=== PATIENT | female | born 2005 | race Caucasian/White ===

== ENCOUNTER 2023-02-10 14:16 | Emergency (ER) | payer BC, SELFPAY ==
--- NOTE | 2023-02-10 14:23 | ED.URI ---
HPI - URI/Sore Throat General Chief Complaint: Upper Respiratory Infection Stated Complaint: Sore Throat, Cough, Congestion Source: patient and RN notes reviewed History of Present Illness HPI Narrative: 17 yo F presents to urgent care with complaints of congestion, sore throat, and intermittent LINARES x 3 weeks. Pt states her sore throat improves throughout the day but the congestion is constant. Denies any fevers, chills, ear pain, chest pain, SOB, N/V/D. Pt has been using Dayquil and Zyrtec with minimal relief. Related Data Home Medications Medication Instructions Recorded Confirmed norgestimate 0.18 mg/0.215 mg/0.25 tablet 02/10/23 mg-ethinyl estradiol 25 mcg tablet (Tri-Lo-Aylin) sumatriptan succinate 50 mg tablet mg PO 02/10/23 Allergies Allergy/AdvReac Type Severity Reaction Status Date / Time No Known Allergies Allergy Verified 02/10/23 14:25 Review of Systems Review of Systems: Pertinent positives and pertinent negatives per HPI. PMFSH Comments At the time of my signature, I reviewed and agree with the nursing past medical, surgical, social, and family history. There is no relevant family history pertinent to the patient complaint. Exam Narrative: GENERAL: This is a well-nourished, well-developed patient, in no apparent distress. HEAD: normocephalic, atraumatic. EYES: Sclera clear/white. Vision is grossly intact. EARS: External ears normal, auditory canals clear and without drainage, TMs normal without perforation. Hearing grossly intact. NOSE: External nose normal with no obvious nasal discharge, nares without redness, no rhinorrhea. THROAT: Mucous membranes moist, posterior pharynx clear. NECK: Neck supple, non-tender without lymphadenopathy, masses or thyromegaly. CARDIOVASCULAR: Regular rate and rhythm without murmurs, gallops, or rubs. RESPIRATORY: Clear to auscultation. Breath sounds equal bilaterally. No wheezes, rales, or rhonchi. GASTROINTESTINAL: Abdomen soft, non-tender, nondistended. Bowel sounds are active. No hepato-splenomegaly, or palpable masses. No guarding. SKIN: warm, intact with no suspicious lesions or rash, good texture and turgor. NEURO: awake, alert, and oriented to person, place and time. There were no obvious focal neurologic abnormalities. EXTREMITIES: No clubbing, cyanosis, or edema. No joint tenderness, effusion, or edema noted. BACK: Nontender without deformity or crepitus. No flank tenderness. Course Course Level of Care: Express Care Visit Vital Signs Vital signs: Vital Signs Temperature 98.2 F 02/10/23 14:26 Pulse Rate 93 02/10/23 14:26 Respiratory Rate 16 02/10/23 14:26 Blood Pressure 134/82 02/10/23 14:26 Pulse Oximetry 100 02/10/23 14:26 Oxygen Delivery Room Air 02/10/23 14:26 Temperature 98.2 F 02/10/23 14:26 Pulse Rate 93 02/10/23 14:26 Respiratory Rate 16 02/10/23 14:26 Blood Pressure 134/82 02/10/23 14:26 Pulse Oximetry 100 02/10/23 14:26 Oxygen Delivery Room Air 02/10/23 14:26 Reviewed MDM - URI/Sore Throat MDM Narrative Medical decision making narrative: Go to the ER for any new or worsening symptoms. Avoid smoking/second-hand smoke. Continue to take Tylenol or Motrin for pain. Increase your Vitamin C intake. Use a humidifier or vaporizer at night. Take Medications as prescribed. Drink plenty of water. 8-10 glasses per day. Use flonase 2 times per day for 5 days then as needed Take mucinex 2 times per day and be sure to take with 8oz of water. Follow up with Primary provider if not getting better. Differential Diagnosis Differential diagnosis: Likely upper respiratory infection, sinusitis and viral infection Critical Care Time Critical Care Time Critical Care Time: No Discharge Plan Discharge Clinical Impression: Sinusitis Qualifiers: Sinusitis location: unspecified location Chronicity: unspecified Qualified Code(s): J32.9 - Chronic sinusitis, unspecified Patient
[2023-02-10 14:26] VITALS: BP 134/82; PULSE 93; RESP 16; TEMP 36.8; O2SAT 100
== END 2023-02-10 14:50 | disposition home or self-care (01) ==
PROVIDERS: Emergency Provider Nurse Practitioner Family
DX: J32.9 Chronic sinusitis, unspecified (principal); Z79.899 Other long term (current) drug therapy
CPT/HCPCS: 99213; G0463

== ENCOUNTER 2023-06-24 12:54 | Emergency (ER) | payer MEDICAID, SELFPAY ==
[2023-06-24 12:59] VITALS: BP 141/82; PULSE 123; RESP 18; TEMP 36.9; O2SAT 100
--- NOTE | 2023-06-24 13:45 | ED.URI ---
HPI - URI/Sore Throat General Chief Complaint: Upper Respiratory Infection Stated Complaint: Cold Symptoms Time Seen by Provider: 06/24/23 13:40 Source: patient and RN notes reviewed Mode of arrival: ambulatory Limitations: no limitations History of Present Illness HPI Narrative: Patient presents today complaining of a one-month history of cough, rhinorrhea, congestion, ear pain. She developed fever up to 102 starting this morning with some sweats and chills. States her symptoms have worsened over the past 3 days. She has been taking Robitussin and Tylenol without relief. States her roommate has become ill recently and is currently in the ER for workup. Related Data Home Medications Medication Instructions Recorded Confirmed norgestimate 0.18 mg/0.215 mg/0.25 1 tablet PO DAILY 02/10/23 06/24/23 mg-ethinyl estradiol 25 mcg tablet (Tri-Lo-Aylin) sumatriptan succinate 50 mg tablet 50 mg PO PRN PRN Headache 02/10/23 06/24/23 Allergies Allergy/AdvReac Type Severity Reaction Status Date / Time No Known Allergies Allergy Verified 06/24/23 13:28 Review of Systems Review of Systems: CONSTITUTIONAL: Denies body aches. + fever, sweats, chills EYES: Denies visual changes, redness, or discharge. ENT: Denies rhinorrhea.+ sore throat, congestion, ear pain CARDIOVASCULAR: Denies chest pain, palpitations, or edema. RESPIRATORY: Denies dyspnea.+ cough GASTROINTESTINAL: Denies abdominal pain, nausea, vomiting, or diarrhea. GENITOURINARY: Denies dysuria or hematuria. SKIN: Denies rash, itching, or wounds. MUSCULOSKELETAL: Denies back pain, joint pain, or myalgia. NEUROLOGIC: Denies headache, numbness, tingling, or weakness. PSYCH: Denies depression or anxiety. Exam Narrative: GENERAL: Mildly-appearing, well-nourished, and in no acute distress. HEAD: Normocephalic, atraumatic. EYES: EOMI. No redness or drainage. Conjunctivae normal. ENT: Mucous membranes pink and moist. Nares congested. No rhinorrhea. TMs normal bilaterally. Throat mildly erythematous. Uvula midline. NECK: Normal AROM. Supple. No lymphadenopathy. CHEST: No respiratory distress. Clear to auscultation. HEART: Regular rate and rhythm. No murmur appreciated. EXTREMITIES: Normal range of motion. No edema. SKIN: Warm, dry, no rash. Capillary refill normal. Normal skin turgor. NEURO: No focal deficits. Alert and oriented x3. Gait steady. PSYCH: Normal affect. No signs of depression or anxiety. Course Course Level of Care: Express Care Visit Vital Signs Vital signs: Vital Signs Temperature 98.4 F 06/24/23 12:59 Pulse Rate 123 H 06/24/23 12:59 Respiratory Rate 18 06/24/23 12:59 Blood Pressure 141/82 H 06/24/23 12:59 Pulse Oximetry 100 06/24/23 12:59 Oxygen Delivery Room Air 06/24/23 12:59 Temperature 98.4 F 06/24/23 12:59 Pulse Rate 123 H 06/24/23 12:59 Respiratory Rate 18 06/24/23 12:59 Blood Pressure 141/82 H 06/24/23 12:59 Pulse Oximetry 100 06/24/23 12:59 Oxygen Delivery Room Air 06/24/23 12:59 Reviewed MDM - URI/Sore Throat MDM Narrative Medical decision making narrative: Influenza a positive. Prescription for Tamiflu will be sent to pharmacy. As patient has been sick with cold symptoms for approximately 1 month, she likely also has a bacterial infection, and will also be treated with Augmentin. Anticipatory guidance given. Differential Diagnosis Differential diagnosis: Likely upper respiratory infection, otitis media, sinusitis, viral infection, bronchitis, influenza, pharyngitis and other (COVID-19) Lab Data Attestation: I reviewed the patient's lab results. Lab results narrative: covid negative Labs: Influenza A Screen Positive Reference Range: Negative Influenza B Screen Negative Reference Range: Negative Critical Care Time Critical Care Time
== END 2023-06-24 14:12 | disposition home or self-care (01) ==
PROVIDERS: Emergency Provider Nurse Practitioner
DX: J10.1 Influenza due to other identified influenza virus with other respiratory manifestations (principal); J01.90 Acute sinusitis, unspecified; Z20.822 Contact with and (suspected) exposure to COVID-19
CPT/HCPCS: 87426; 87804; 99213; G0463

== ENCOUNTER 2024-08-03 17:59 | Emergency (ER) | payer BC, SELFPAY ==
--- NOTE | 2024-08-03 18:01 | ED.URI ---
HPI - URI/Sore Throat General Chief Complaint: Upper Respiratory Infection Stated Complaint: Cough/Sore Throat Source: patient and RN notes reviewed Mode of arrival: ambulatory Limitations: no limitations History of Present Illness HPI Narrative: Patient is a 18-year-old female who presents to the [facility] with complaints of cough and sore throat for the past week. Patient endorses a frequent nonproductive cough that is occasionally productive with yellow sputum. She reports worsening sore throat over the past week. Denies nasal congestion or drainage. Denies known fever. Unsure of any known sick contacts. Related Data Home Medications ?Medication ?Instructions ?Recorded ?Confirmed ?Last Taken ?Type norgestimate 0.18 mg/0.215mg/0.25 1 tablet PO DAILY 02/10/23 06/24/23 Unknown History mg-ethinyl estradiol 0.025 mg tablet (Tri-Lo-Aylin) sumatriptan succinate 50 mg tablet 50 mg PO PRN PRN Headache 02/10/23 06/24/23 Unknown History venlafaxine 75 mg capsule,extended mg PO 08/03/24 Unknown History release 24 hr Allergies Allergy/AdvReac Type Severity Reaction Status Date / Time No Known Allergies Allergy Verified 08/03/24 18:11 Review of Systems Review of Systems: CONSTITUTIONAL: Denies fever, chills, or sweats. EYES: Denies visual changes, redness, or discharge. ENT: Denies otalgia but reports sore throat CARDIOVASCULAR: Denies chest pain, palpitations, or edema. RESPIRATORY: Reports cough but denies dyspnea. GASTROINTESTINAL: Denies abdominal pain, nausea, vomiting, or diarrhea. GENITOURINARY: Denies dysuria or hematuria. SKIN: Denies rash or itching. MUSCULOSKELETAL: Denies back pain, joint pain, or myalgia. NEUROLOGIC: Denies headache, numbness, or weakness. Pertinent positives per HPI. PMFSH Comments At the time of my signature, I reviewed and agree with the nursing past medical, surgical, social, and family history. There is no relevant family history pertinent to the patient complaint. Exam Narrative: GENERAL: This is a well-nourished, well-developed patient, in no apparent distress. HEAD: normocephalic, atraumatic. EYES: Sclera clear/white. Vision is grossly intact. EARS: External ears normal, auditory canals clear and without drainage, TMs normal without perforation. Hearing grossly intact. NOSE: External nose normal with no obvious nasal discharge, nares without redness, no rhinorrhea. THROAT: Mucous membranes moist, oropharyngeal erythema without exudate or ulceration NECK: Neck supple, non-tender without lymphadenopathy, masses or thyromegaly. CARDIOVASCULAR: Regular rate and rhythm without murmurs, gallops, or rubs. RESPIRATORY: Clear to auscultation. Breath sounds equal bilaterally. No wheezes, rales, or rhonchi. GASTROINTESTINAL: Abdomen soft, non-tender, nondistended. Bowel sounds are active. No hepato-splenomegaly, or palpable masses. No guarding. SKIN: warm, intact with no suspicious lesions or rash, good texture and turgor. NEURO: awake, alert, and oriented to person, place and time. There were no obvious focal neurologic abnormalities. Course Course Level of Care: Express Care Visit Vital Signs Vital signs: Vital Signs Temperature 98.2 F 08/03/24 18:07 Pulse Rate 90 08/03/24 18:07 Respiratory Rate 18 08/03/24 18:07 Blood Pressure 129/96 H 08/03/24 18:07 Pulse Oximetry 100 08/03/24 18:07 Temperature 98.2 F 08/03/24 18:07 Pulse Rate 90 08/03/24 18:07 Respiratory Rate 18 08/03/24 18:07 Blood Pressure 129/96 H 08/03/24 18:07 Pulse Oximetry 100 08/03/24 18:07 Reviewed MDM - URI/Sore Throat MDM Narrative Medical decision making narrative: Rapid strep is negative in the office; however we will send to the lab for confirmation; there is a small percentage chance that it can come back positive; if it is, we will call you in 2-3days; and your prescription will be call in to your pharmacy. However, there is NO indication for antibiotic at this time. -Increase your fluids and Vitamin C. -Oral rinses such as: Salt water gargles and/or may use topical anesthetic (eg. Chloraseptic spray) or lozenges to relieve dryness or throat pain. -Take tylenol and ibuprofen as needed for pain and fever as directed. -Frequent hand washing or hand glass forming crew member is one of the best ways to prevent spread of infection. -Follow up with primary care provider in 2-3 days if condition is not improving or seek ER visit if your child starts breathing fast/has trouble breathing, is not drinking enough fluids, muffle voice, difficulty opening the mouth or will not wake up or will not interact with you. Differential Diagnosis Differential diagnosis: Likely upper respiratory infection, viral infection, pharyngitis and other (strep) Lab Data Attestation: I reviewed the patient's lab results. Critical Care Time Critical Care Time Critical Care Time: No Discharge Plan Discharge Clinical Impression: Viral infection Patient Disposition: Home, Self-Care Condition: Stable Instructions: Viral Syndrome (ED) Additional Instructions: Rapid strep is negative in the office; however we will send to the lab for confirmation; there is a small percentage chance that it can come back positive; if it is, we will call you in 2-3days; and your prescription will be call in to your pharmacy. However, there is NO indication for antibiotic at this time. -Increase your fluids and Vitamin C. -Oral rinses such as: Salt water gargles and/or may use topical anesthetic (eg. Chloraseptic spray) or lozenges to relieve dryness or throat pain. -Take tylenol and ibuprofen as needed for pain and fever as directed. -Frequent hand washing or hand glass forming crew member is one of the best ways to prevent spread of infection. -Follow up with primary care provider in 2-3 days if condition is not improving or seek ER visit if your child starts breathing fast/has trouble breathing, is not drinking enough fluids, muffle voice, difficulty opening the mouth or will not wake up or will not interact with you. Patient Language: Ukrainian Prescriptions: No Action sumatriptan succinate 50 mg tablet 50 mg PO PRN PRN (Reason: Headache) norgestimate-ethinyl estradiol [Tri-Lo-Aylin] 0.18/0.215/0.25 mg-25 mcg tablet 1 tablet PO DAILY venlafaxine 75 mg capsule,extended release 24hr PO Follow-up/Referrals: PHYSICIAN,DYE BLENDER [Primary Care Provider] - Time of Disposition: 18:26
[2024-08-03 18:07] VITALS: BP 129/96; PULSE 90; RESP 18; TEMP 36.8; O2SAT 100
[2024-08-03 18:23] LABS: EDSTREPNEGPOS1 Negative (Negative)
== END 2024-08-03 18:29 | disposition home or self-care (01) ==
PROVIDERS: Emergency Provider Nurse Practitioner
DX: B34.9 Viral infection, unspecified (principal)
CPT/HCPCS: 87081; 87880; 99213; G0463